=== PATIENT | female | born 1950 | race Two or more races ===

== ENCOUNTER → 2017-09-19 | Outpatient (CLI) | END | disposition home or self-care (01) ==

== ENCOUNTER → 2018-01-15 | Outpatient (CLI) | END | disposition home or self-care (01) ==

== ENCOUNTER 2018-01-17 05:39 | Observation (INO) | END 2018-01-18 15:40 | disposition home health service (06) ==

== ENCOUNTER 2018-01-23 18:25 | Emergency (ER) | END 2018-01-23 21:16 | disposition home or self-care (01) ==

== ENCOUNTER → 2018-01-29 | Outpatient (CLI) | END | disposition home or self-care (01) ==